=== PATIENT | female | born 1960 | race Caucasian/White ===

== ENCOUNTER 2016-06-21 14:44 | Emergency (ER) | payer MEDICARE, BC ==
[~2016-06-21] VITALS: Wt 72.0 kg
[~2016-06-21 14:44] MED LIST: ARIP15TA2 PO; BENZ1TAB7 PO; CALC-62 PO; CLON-429 PO; HYDR2TAB3 PO; LANS30CA47 PO; OXCA300T3 PO
[2016-06-21] MEDS ORDERED: CYCL-319 PO (15:59)
[2016-06-21] MEDS ORDERED: TAPE50TA PO (15:59)
[2016-06-21] MEDS ORDERED: DIAZ10TA4 PO (15:59)
--- NOTE | 2016-06-21 16:11 | ERD ---
ER Documentation Chief Complaint Date/Time DATE: 06/21/16 TIME: 16:08 Chief Complaint BACK SPASM CHRONIC PER PT , NO RECENT INJURY. NO DISTRESS. HPI This 55-year-old female complains of acute on chronic back spasm in her neck and lower back. She gives a history of seeing pain management getting regular epidurals although she has been without medication and a recent epidural. She has been referred to pain management which is too far away from her and she is having acute pain. She has been prescribed Dilaudid in the past but developed hepatitis and had to discontinue. She takes Nucynta Flexeril and Valium but none recently. She denies any new trauma, fevers, shortness breath or chest pain. Denies any recent medication. ROS All systems reviewed and are negative except as per history of present illness. Medications Home Meds Active Scripts Diazepam* (Diazepam*) 10 Mg Tablet, 10 MG PO TID, #20 TAB Prov:SUSAN COLIN MD 06/21/16 Cyclobenzaprine Hcl* (Cyclobenzaprine Hcl*) 10 Mg Tablet, 10 MG PO TID, #40 TAB Prov:SUSAN COLIN MD 06/21/16 Tapentadol Hcl (Nucynta ER) 50 Mg Tab.er.12h, 50 MG PO Q12, #14 TAB Prov:SUSAN COLIN MD 06/21/16 Reported Medications Oxcarbazepine* (Trileptal*) 300 Mg Tablet, 300 MG PO BID 09/06/11 Hydromorphone Hcl (Dilaudid) 2 Mg Tab, 4 MG PO TID, 0 Refills 11/23/09 Clonazepam* (Klonopin*) 0.5 Mg Tab, 0.5 MG PO BID, 0 Refills 11/23/09 Lansoprazole* (Prevacid*) 30 Mg Capsule.dr, 30 MG PO DAILY, 0 Refills 11/23/09 Calcium Carbonate/Vitamin D3 (Calcium 500 + D Tablet) 1 Tab Tablet, 1 TAB PO BID , 0 Refills 11/23/09 Benztropine Mesylate* (Cogentin*) 1 Mg Tab, 2 MG PO DAILY, 0 Refills 11/23/09 Aripiprazole* (Abilify*) 15 Mg Tablet, 10 MG PO DAILY, 0 Refills 11/23/09 Allergies Allergies: Coded Allergies: Metoclopramide (Verified Allergy, Severe, BPS, 10/17/11) PMhx/Soc History of Surgery: Yes (4 ABORTIONS, BREAST AUGMENTATION) Anesthesia Reaction: No Hx Neurological Disorder: No Hx Respiratory Disorders: Yes (EMPHYSEMA) Hx Cardiac Disorders: No Hx Psychiatric Problems: Yes (BIPOLAR, PSYCHOSIS) Hx Miscellaneous Medical Probl: Yes (KIDNEY STONE, HEPATITIS C) Hx Alcohol Use: Yes Hx Substance Use: Yes Hx Tobacco Use: No Physical Exam Vitals Vital Signs Date Time Temp Pulse Resp B/P Pulse Ox O2 Delivery O2 Flow Rate FiO2 06/21/16 14:48 98.5 88 20 101/68 98 Physical Exam Const: [] Alert, anxious unable to sit but no apparent distress Head: Atraumatic Eyes: Normal Conjunctiva ENT: Normal External Ears, Nose and Mouth. Neck: Full range of motion..~ No meningismus. Resp: Clear to auscultation bilaterally Cardio: Regular rate and rhythm, no murmurs Abd: Soft, non tender, non distended. Normal bowel sounds Skin: No petechiae or rashes Back: No midline or flank tenderness. Generalized paraspinous tenderness in the thoracic or lumbar spine and cervical paraspinous muscles. No changes or bony tenderness performed Ext: No cyanosis, or edema Neur: Awake and alert Psych: Normal Mood and Affect Procedures/MDM Patient is requesting short refill of medication until she can see her pain management which is new to her. Review of the tears record shows no recent prescriptions filled by patient and patient does not have recent visits here in the eD. She will be given a short course of Flexeril, Valium and Nucynta until she can follow-up with her primary care doctor or pain management as directed. Patient otherwise return to the ER for new or worsening symptoms, cough, shortness of breath, fevers, new symptoms Departure Diagnosis: Primary Impression: Back pain Back pain location: back pain in unspecified location Chronicity: acute Back pain laterality: bilateral Qualified Code: M54.9 - Acute bilateral back pain, unspecified back location Condition: Stable Patient Instructions: Back Pain (Acute Or Chronic) Referrals: SALLY MUNOZ MD, ANTHONY Jr., MD [facility] Hours: Mon-Sat 9:00 AM - 5:00 PM Additional Instructions: See primary doctor or pain management for further evaluation and treatment. SUSAN COLIN MD Jun 21, 2016 16:11
== END 2016-06-21 16:22 | disposition home or self-care (01) ==
LOC: FTE 14:44
DX: M54.6 Pain in thoracic spine (principal)
CPT/HCPCS: 99284

== ENCOUNTER 2017-01-18 22:42 | Emergency (ER) | payer MEDICARE, BC ==
[~2017-01-18] VITALS: Ht 162.6 cm; Wt 71.0 kg
[~2017-01-18 22:42] MED LIST changes: +CYCL-319 PO; +DIAZ10TA4 PO; +TAPE50TA PO
[2017-01-18 22:54] VITALS: Ht 162.6 cm; Wt 71.0 kg
[2017-01-19] MEDS ORDERED: IBUP-1542 PO (01:18)
[2017-01-19] MEDS ORDERED: CEPH-443 PO (01:18)
[2017-01-19] MEDS ORDERED: SSD1C20 TOP (01:18)
--- NOTE | 2017-01-19 01:22 | ERD ---
ER Documentation Chief Complaint Date/Time DATE: 01/19/17 TIME: 01:21 Chief Complaint both foot pain for few days HPI 56-year-old female presents stating that she burned her feet secondary to hot pavement. Is having today. She is ambulatory denies any numbness or tingling. He is unsure of her last tetanus vaccination. She has not taken any medication for pain. ROS All systems reviewed and are negative except as per history of present illness. Medications Home Meds Active Scripts Cephalexin* (Keflex*) 500 Mg Capsule, 500 MG PO QID for 7 Days, CAP Prov:SHARRON PUGH PA-C 01/19/17 Ibuprofen* (Ibuprofen*) 600 Mg Tablet, 600 MG PO Q6, #30 TAB Prov:SHARRON PUGH PA-C 01/19/17 Silver Sulfadiazine (THERMAZENE 1% 25 GM) 1 Applic Cr, 1 APPLIC TOP BID, #1 TUB Prov:SHARRON PUGH PA-C 01/19/17 Diazepam* (Diazepam*) 10 Mg Tablet, 10 MG PO TID, #20 TAB Prov:SUSAN COLIN MD 06/21/16 Cyclobenzaprine Hcl* (Cyclobenzaprine Hcl*) 10 Mg Tablet, 10 MG PO TID, #40 TAB Prov:SUSAN COLIN MD 06/21/16 Tapentadol Hcl (Nucynta ER) 50 Mg Tab.er.12h, 50 MG PO Q12, #14 TAB Prov:SUSAN COLIN MD 06/21/16 Reported Medications Oxcarbazepine* (Trileptal*) 300 Mg Tablet, 300 MG PO BID 09/06/11 Hydromorphone Hcl (Dilaudid) 2 Mg Tab, 4 MG PO TID, 0 Refills 11/23/09 Clonazepam* (Klonopin*) 0.5 Mg Tab, 0.5 MG PO BID, 0 Refills 11/23/09 Lansoprazole* (Prevacid*) 30 Mg Capsule.dr, 30 MG PO DAILY, 0 Refills 11/23/09 Calcium Carbonate/Vitamin D3 (Calcium 500 + D Tablet) 1 Tab Tablet, 1 TAB PO BID , 0 Refills 11/23/09 Benztropine Mesylate* (Cogentin*) 1 Mg Tab, 2 MG PO DAILY, 0 Refills 11/23/09 Aripiprazole* (Abilify*) 15 Mg Tablet, 10 MG PO DAILY, 0 Refills 11/23/09 Allergies Allergies: Coded Allergies: Metoclopramide (Verified Allergy, Severe, BPS, 10/17/11) PMhx/Soc History of Surgery: Yes (4 ABORTIONS, BREAST AUGMENTATION) Anesthesia Reaction: No Hx Neurological Disorder: No Hx Respiratory Disorders: Yes (EMPHYSEMA) Hx Cardiac Disorders: No Hx Psychiatric Problems: Yes (BIPOLAR, PSYCHOSIS) Hx Miscellaneous Medical Probl: Yes (KIDNEY STONE, HEPATITIS C) Hx Alcohol Use: Yes Hx Substance Use: Yes Hx Tobacco Use: No Smoking Status: Unknown if ever smoked FmHx Family History: No diabetes Physical Exam Vitals Vital Signs Date Time Temp Pulse Resp B/P Pulse Ox O2 Delivery O2 Flow Rate FiO2 01/18/17 22:54 99.4 82 20 118/62 97 Physical Exam Const: [] Head: Atraumatic Eyes: Normal Conjunctiva ENT: Normal External Ears, Nose and Mouth. Neck: Full range of motion..~ No meningismus. Resp: Clear to auscultation bilaterally Cardio: Regular rate and rhythm, no murmurs Abd: Soft, non tender, non distended. Normal bowel sounds Skin: Mild erythema erythema to the bilateral plantar surface of the feet, pedal pulse 2+, full range of motion, ambulatory, no bony abnormalities Results 24 hrs Current Medications Medications (Trade) Dose Ordered Sig/Jignesh Route PRN Reason Start Time Stop Time Status Last Admin Dose Admin Diphtheria/ Tetanus/Acell Pertussis (Adacel) 0.5 ml ONCE ONCE IM* 01/19/17 01:30 01/19/17 01:31 Procedures/MDM Patient presents with feet pain secondary to burning her feet are hot pavement. There are no blisters or evidence of second-degree lee. Patient was given prescription for Keflex and Silvadene cream as well as ibuprofen for pain and she was given a tetanus vaccination. Patient counseled regarding my diagnostic impression and care plan. Prior to discharge all questions answered. Pt agrees with treatment plan and understands strict return precautions. Pt is instructed to follow up with primary care provider within 24-48 hours. Precautionary instructions provided including instructions to return to the ER if not improving or for any worsening or changing symptoms or concerns. Departure Diagnosis: Primary Impression: Burn of foot Condition: Stable Patient Instructions: Burn, First Degree Additional Instructions: Call your primary care doctor TOMORROW for an appointment during the next 1-2 days.See the doctor sooner or return here if your condition worsens before your appointment time. SHARRON PUGH PA-C Jan 19, 2017 01:22
[2017-01-19] MEDS ORDERED: DIPHTH/TET/ACEL PERTUSS (ADULT) 0.5 ML VIAL IM* ONE (01:30)
[2017-01-19 02:14] VITALS: BP 141/77; PULSE 79; RESP 18; TEMP 98.3
== END 2017-01-19 02:15 | disposition home or self-care (01) ==
LOC: FTE 22:42
DX: T25.121A Burn of first degree of right foot, initial encounter (principal); T25.122A Burn of first degree of left foot, initial encounter; X19.XXXA Contact with other heat and hot substances, initial encounter; Y92.480 Sidewalk as the place of occurrence of the external cause; Z23 Encounter for immunization
CPT/HCPCS: 90471; 90715

== ENCOUNTER 2017-01-19 08:11 | Emergency (ER) | payer MEDICARE, BC ==
[~2017-01-19] VITALS: Ht 162.6 cm; Wt 71.0 kg
[~2017-01-19 08:11] MED LIST changes: +CEPH-443 PO; +IBUP-1542 PO; +SSD1C20 TOP
[2017-01-19 08:25] VITALS: Ht 162.6 cm; Wt 71.0 kg
[2017-01-19] MEDS ORDERED: ONDANSETRON 4 MG INJ IV STA (08:54)
[2017-01-19] MEDS ORDERED: SOD CHLORIDE 0.9% 1,000 ML IV STA (08:54)
[2017-01-19] MEDS ORDERED: LORAZEPAM 2 MG INJ IV ONE (09:30)
[2017-01-19 09:39] LABS: BASOPHILS % 0.1 % (0.0-2.0); EOSINOPHILS % 0.4 % (0.0-7.0); HEMATOCRIT 38.8 % (37.0-47.0); HEMOGLOBIN 13.5 g/dl (12.0-16.0); LYMPHOCYTES # 1.5 10^3/ul (0.8-2.9); LYMPHOCYTES % 20.1 % (15.0-51.0); MEAN CORPUSCULAR HEMOGLOBIN 30.5 pg (29.0-33.0); MEAN CORPUSCULAR HGB CONC 34.8 g/dl (32.0-37.0); MEAN CORPUSCULAR VOLUME 87.6 fl (82.0-101.0); MEAN PLATELET VOLUME 10.9 fl (7.4-10.4); MONOCYTE # 0.8 10^3/ul (0.3-0.9); MONOCYTES % 10.7 % (0.0-11.0); NEUTROPHILS % 68.6 % (39.0-77.0); PLATELET COUNT 223 10^3/UL (140-415); RED BLOOD COUNT 4.43 10^6/ul (4.20-5.40); RED CELL DISTRIBUTION WIDTH 12.2 % (11.5-14.5); WHITE BLOOD COUNT 7.4 10^3/ul (4.8-10.8)
[2017-01-19 09:58] LABS: ALANINE AMINOTRANSFERASE 76 IU/L (13-69); ALBUMIN 4.6 g/dl (3.3-4.9); ALBUMIN/GLOBULIN RATIO 1.24; ALKALINE PHOSPHATASE 61 IU/L (42-121); ANION GAP 14 (8-16); ASPARTATE AMINO TRANSFERASE 45 IU/L (15-46); BILIRUBIN,INDIRECT 0.2 mg/dl (0-1.1); BILIRUBIN,TOTAL 0.2 mg/dl (0.2-1.3); BLOOD UREA NITROGEN 21 mg/dl (7-20); CALCIUM 9.9 mg/dl (8.4-10.2); CARBON DIOXIDE 27 mmol/L (21-31); CHLORIDE 103 mmol/L (97-110); CREATININE 0.76 mg/dl (0.44-1.00); GLUCOSE 98 mg/dl (70-220); POTASSIUM 3.3 mmol/L (3.5-5.1); SODIUM 141 mmol/L (135-144); TOTAL PROTEIN 8.3 g/dl (6.1-8.1)
[2017-01-19 10:00] LABS: ETHANOL < 10.0 mg/dl
--- NOTE | 2017-01-19 10:16 | RADRPT ---
PROCEDURE: CT abdomen and pelvis without contrast. CLINICAL INDICATION: Abdominal pain. TECHNIQUE: CT scan of the abdomen and pelvis without contrast was performed on a multi-slice CT [facility] . Sagittal and coronal reformatted images were obtained from the axial source images. One or more of the following dose reduction techniques were used: - Automated exposure control. - Adjustment of the mA and/or kV according to patient size. - Use of iterative reconstruction technique. DLP 835.3 mGycm. CTDIvol 15.3 mGy COMPARISON: None FINDINGS: The lung bases are clear. bilateral breast implants are present. There is limited evaluation of the solid viscera from the lack of IV contrast. The kidneys are symmetric bilaterally with no evidence of renal or ureteral calculi. There is no hy dronephrosis or perinephric stranding. There is normal density of the liver with an area of localized low density along the falciform liga ment likely focal fat with scattered punctate calcifications. There are no other lesions with no bi liary ductal dilatation. The gallbladder has punctate layering stones without surrounding inflammat ion. The spleen is nonenlarged. There are numerous splenic calcifications. The adrenal glands are withi n normal limits without mass. The pancreas is unremarkable without focal lesion or surrounding inflammatory changes. There is no evidence of bowel obstruction. There is generalize fluid distension of the colon which is borderline colonic wall thickening and trace surrounding fat stranding. The appendix is unremarka ble. There is no free air or free fluid. There are no enlarged lymph nodes. There is aortic atherosclerosis without aneurysmal dilatation. Degenerative changes are seen in t he lumbar spine with no acute osseous abnormality. Scoliosis is present. The uterus and adnexal structures are grossly unremarkable. IMPRESSION: No evidence of renal or ureteral calculi or hydronephrosis. There are findings suggestive of likely mild colitis with the presence of a colonic ileus. This may be infectious or inflammatory in nature. Findings of prior granulomatous disease within the liver and spleen. Atherosclerotic disease is present. RPTAT: AA .Lucia Barry MD, Date Time Electronically viewed and signed by .Lucia Barry MD, on 01/19/2017 10:15 .J/
[2017-01-19 11:06] LABS: COCAINE Negative (NEGATIVE)
[2017-01-19 11:07] LABS: BARBITURATES Negative (NEGATIVE); BENZODIAZEPINES Negative (NEGATIVE); CANNABINOIDS Negative (NEGATIVE); OPIATES Negative (NEGATIVE)
--- NOTE | 2017-01-19 12:46 | ERA ---
ER Documentation Chief Complaint Date/Time DATE: 01/19/17 TIME: 12:42 Chief Complaint VOMITING AFTER TAKING "SCHROOMS." VOMITED IN THE WAITING AREA. HPI This is a 56-year-old female who presents with vomiting. The patient initially told triage that she took mushrooms however the patient is extremely disorganized. To me she states that the way she took some Ultram as well as by walking on them. The patient is speaking in flight of ideas. The patient initially reported abdominal pain but then denies abdominal pain. She did have a single episode of nonbloody nonbilious vomiting in the waiting room. Remainder of HPI is limited. The patient does report a history of bipolar disorder and schizoaffective disorder. She states that she has not taken her medications for unknown period of time. ROS All systems reviewed and are negative except as per history of present illness. Medications Home Meds Active Scripts Cephalexin* (Keflex*) 500 Mg Capsule, 500 MG PO QID for 7 Days, CAP Prov:SHARRON PUGH PA-C 01/19/17 Ibuprofen* (Ibuprofen*) 600 Mg Tablet, 600 MG PO Q6, #30 TAB Prov:SHARRON PUGH PA-C 01/19/17 Silver Sulfadiazine (THERMAZENE 1% 25 GM) 1 Applic Cr, 1 APPLIC TOP BID, #1 TUB Prov:SHARRON PUGH PA-C 01/19/17 Diazepam* (Diazepam*) 10 Mg Tablet, 10 MG PO TID, #20 TAB Prov:SUSAN COLIN MD 06/21/16 Cyclobenzaprine Hcl* (Cyclobenzaprine Hcl*) 10 Mg Tablet, 10 MG PO TID, #40 TAB Prov:SUSAN COLIN MD 06/21/16 Tapentadol Hcl (Nucynta ER) 50 Mg Tab.er.12h, 50 MG PO Q12, #14 TAB Prov:SUSAN COLIN MD 06/21/16 Reported Medications Oxcarbazepine* (Trileptal*) 300 Mg Tablet, 300 MG PO BID 09/06/11 Hydromorphone Hcl (Dilaudid) 2 Mg Tab, 4 MG PO TID, 0 Refills 11/23/09 Clonazepam* (Klonopin*) 0.5 Mg Tab, 0.5 MG PO BID, 0 Refills 7/7/10 Lansoprazole* (Prevacid*) 30 Mg Capsule.dr, 30 MG PO DAILY, 0 Refills 11/23/09 Calcium Carbonate/Vitamin D3 (Calcium 500 + D Tablet) 1 Tab Tablet, 1 TAB PO BID , 0 Refills 11/23/09 Benztropine Mesylate* (Cogentin*) 1 Mg Tab, 2 MG PO DAILY, 0 Refills 11/23/09 Aripiprazole* (Abilify*) 15 Mg Tablet, 10 MG PO DAILY, 0 Refills 11/23/09 Allergies Allergies: Coded Allergies: Metoclopramide (Verified Allergy, Severe, BPS, 10/17/11) PMhx/Soc History of Surgery: Yes (4 ABORTIONS, BREAST AUGMENTATION) Anesthesia Reaction: No Hx Neurological Disorder: No Hx Respiratory Disorders: Yes (EMPHYSEMA) Hx Cardiac Disorders: No Hx Psychiatric Problems: Yes (BIPOLAR, PSYCHOSIS) Hx Miscellaneous Medical Probl: Yes (KIDNEY STONE, HEPATITIS C) Hx Alcohol Use: Yes Hx Substance Use: Yes Hx Tobacco Use: No Smoking Status: Former smoker FmHx Family History: No diabetes Physical Exam Vitals Vital Signs Date Time Temp Pulse Resp B/P Pulse Ox O2 Delivery O2 Flow Rate FiO2 01/19/17 10:48 97.9 74 17 109/66 98 Room Air 01/19/17 08:25 98.3 70 16 119/73 98 Physical Exam General: Disheveled, occasionally responding to internal stimuli head: Normocephalic, atraumatic Eyes: Pupils equally reactive, EOM intact ENT: Moist mucous membranes Neck: Supple, no lymphadenopathy Respiratory: Lungs clear bilaterally, no distress Cardiovascular: RRR, no murmurs, rubs, or gallops Abdominal: Soft, non-tender, non-distended, no peritoneal signs : Deferred MSK: No edema, no unilateral swelling, 5/5 strength Neurologic: Alert and oriented, moving all extremities, normal speech, no focal weakness, no cerebellar signs Skin: No rash Psych: Poor insight, speaking and flight of ideas, no SI Result Diagram: 01/19/1725 01/19/1725 Results 24 hrs Laboratory Tests Test 01/19/17 09:25 01/19/17 10:20 White Blood Count 7.410^3/ul Red Blood Count 4.4310^6/ul Hemoglobin 13.5g/dl Hematocrit 38.8% Mean Corpuscular Volume 87.6fl Mean Corpuscular Hemoglobin 30.5pg Mean Corpuscular Hemoglobin Concent 34.8g/dl Red Cell Distribution Width 12.2% Platelet Count 05858^3/UL Mean Platelet Volume 10.9fl Neutrophils % 68.6% Lymphocytes % 20.1% Monocytes % 10.7% Eosinophils % 0.4% Basophils % 0.1% Nucleated Red Blood Cells % 0.0/100WBC Neutrophils # (Manual) 5.010^3/ul Lymphocytes # 1.510^3/ul Monocytes # 0.810^3/ul Eosinophils # 0.010^3/ul Basophils # 0.010^3/ul Nucleated Red Blood Cells # 0.010^3/ul Sodium Level 141mmol/L Potassium Level 3.3mmol/L Chloride Level 103mmol/L Carbon Dioxide Level 27mmol/L Anion Gap 14 Blood Urea Nitrogen 21mg/dl Creatinine 0.76mg/dl Glucose Level 98mg/dl Calcium Level 9.9mg/dl Total Bilirubin 0.2mg/dl Direct Bilirubin 0.00mg/dl Indirect Bilirubin 0.2mg/dl Aspartate Amino Transf (AST/SGOT) 45IU/L Alanine Aminotransferase (ALT/SGPT) 76IU/L Alkaline Phosphatase 61IU/L Total Protein 8.3g/dl Albumin 4.6g/dl Globulin 3.70g/dl Albumin/Globulin Ratio 1.24 Lipase 33U/L Serum HCG, Qualitative NEGATIVE Ethyl Alcohol Level < 10.0mg/dl Urine Opiates Screen Negative Urine Barbiturates Negative Urine Amphetamines Screen Negative Urine Benzodiazepines Screen Negative Urine Cocaine Screen Negative Urine Cannabinoids Negative Current Medications Medications (Trade) Dose Ordered Sig/Jignesh Route PRN Reason Start Time Stop Time Status Last Admin Dose Admin Sodium Chloride (NS) 1,000 ml @ 1,000 mls/hr Q1H STAT IV 01/19/17 08:54 01/19/17 09:53 DC 01/19/17 09:18 Ondansetron HCl (Zofran Inj) 4 mg ONCE STAT IV 01/19/17 08:54 01/19/17 08:57 DC 01/19/17 09:18 Lorazepam (Ativan) 1 mg ONCE ONCE IV 01/19/17 09:30 01/19/17 09:31 DC 01/19/17 09:39 Procedures/MDM EKG/DIAGNOSTIC IMAGING: CT abdomen and pelvis: No evidence of acute intra-abdominal process LAB INTERPRETATION: No leukocytosis no evidence of acute process MEDICAL DECISION MAKING: The patient's presentation is consistent with underlying psychiatric illness and likely exacerbation of this illness and/or psychosis. I have a much lower clinical concern for delirium or acute organic pathology such as toxicologic, metabolic, ischemic, intracranial hemorrhage, infectious process. However, we must rule this out prior to relying a diagnosis of underlying psychiatric illness. The patient's workup will include medical screening examination, laboratory analysis, and diagnostic imaging such as EKG, chest x-ray or CT brain as indicated. If the patient's medical examination and laboratory analysis do not reveal acute organic pathology the patient will be medically cleared for psychiatric evaluation. ER COURSE: Patient given IV fluids, Zofran, Ativan patient refused Zyprexa The patient's laboratory analysis, diagnostic imaging do not suggest an acute organic pathology. At this time I believe the patient's presentation is very consistent with underlying psychiatric illness. The patient is medically cleared for psychiatric evaluation. I kept the patient and/or family informed of laboratory and diagnostic imaging results throughout the emergency room course. CONSULTATION: Psychiatric consultation: Telemetry medicine psychiatry has been consulted on this case to evaluate the patient for possible acute psychiatric illness that would require inpatient hospitalization. DISPOSITION PLAN: Pending psychiatric evaluation Departure Diagnosis: Primary Impression: Abdominal pain Qualified Code: R10.84 - Generalized abdominal pain Additional Impressions: Nausea and vomiting Qualified Code: R11.2 - Non-intractable vomiting with nausea, unspecified vomiting type Acute psychosis Condition: Stable JORDAN HEREDIA MD Jan 19, 2017 12:46
--- NOTE | 2017-01-19 13:30 | PSY ---
Date/Time of Note Date/Time of Note DATE: 01/19/17 TIME: 13:26 Psychiatric Subjective Eval Consent Pt consented to telemedicine: Yes Subjective Evaluation Patient location: emergency Chief Complaint: VOMITING AFTER TAKING "SCHROOMS." VOMITED IN THE WAITING AREA. History of present illness 56 yo homeless femkenzie crow presents to ED c/o vomiting; pt is disorganzied, tangential, castillo snot make much sens, poor historian, not bale to say where she lives and how she provideds for herself. UDS neg. Denies IS or hi, resp to internal stimuli. Pt says she is on [place]." I wantd to jump out of the window and I did but I guess I didn't" Past psychiatric history prior inpt Hospitalization: yes Family History unknown Medical history Problems Medical Problems: (1) Abdominal pain Status: Acute (2) Acute psychosis Status: Acute (3) Back pain Status: Acute (4) Burn of foot Status: Acute (5) Nausea and vomiting Status: Acute Allergies: Coded Allergies: Metoclopramide (Verified Allergy, Severe, BPS, 10/17/11) Substance Abuse Substance abuse history: Yes Social History Marital status: Level of education: High School. DPA/Conservatorship: No Psychiatric Objective Eval Mental Status Examination: Appearance: Disheveled Eye Contact: Poor Psychomotor Activity: Slow Behavior: Cooperative Speech: Disorganized, Slurred AFFECT: Flat Mood: Appropriate/Full Though Process: Tangential Thought Content: Delusions Suicidal: Yes Homicidal: No Cognition: Drowsy Insight: Impared Judgement: Impared Laboratory Results Laboratory Tests Test 01/19/17 09:25 01/19/17 10:20 White Blood Count 7.410^3/ul Red Blood Count 4.4310^6/ul Hemoglobin 13.5g/dl Hematocrit 38.8% Mean Corpuscular Volume 87.6fl Mean Corpuscular Hemoglobin 30.5pg Mean Corpuscular Hemoglobin Concent 34.8g/dl Red Cell Distribution Width 12.2% Platelet Count 66132^3/UL Mean Platelet Volume 10.9fl Neutrophils % 68.6% Lymphocytes % 20.1% Monocytes % 10.7% Eosinophils % 0.4% Basophils % 0.1% Nucleated Red Blood Cells % 0.0/100WBC Neutrophils # (Manual) 5.010^3/ul Lymphocytes # 1.510^3/ul Monocytes # 0.810^3/ul Eosinophils # 0.010^3/ul Basophils # 0.010^3/ul Nucleated Red Blood Cells # 0.010^3/ul Sodium Level 141mmol/L Potassium Level 3.3mmol/L Chloride Level 103mmol/L Carbon Dioxide Level 27mmol/L Anion Gap 14 Blood Urea Nitrogen 21mg/dl Creatinine 0.76mg/dl Glucose Level 98mg/dl Calcium Level 9.9mg/dl Total Bilirubin 0.2mg/dl Direct Bilirubin 0.00mg/dl Indirect Bilirubin 0.2mg/dl Aspartate Amino Transf (AST/SGOT) 45IU/L Alanine Aminotransferase (ALT/SGPT) 76IU/L Alkaline Phosphatase 61IU/L Total Protein 8.3g/dl Albumin 4.6g/dl Globulin 3.70g/dl Albumin/Globulin Ratio 1.24 Lipase 33U/L Serum HCG, Qualitative NEGATIVE Ethyl Alcohol Level < 10.0mg/dl Urine Opiates Screen Negative Urine Barbiturates Negative Urine Amphetamines Screen Negative Urine Benzodiazepines Screen Negative Urine Cocaine Screen Negative Urine Cannabinoids Negative Assessment and Plan Assessment/Diagnosis [place] I: Unspecified psychosis [place] II: defered [place] III: nad [place] IV: severe [place] V: 25 Recommendation/Plan Medication Management zyprexa 10 mg poqhs Follow-up/Disposition 550 for gd; transfer to in psych. 5150 Recommendation: LUIZA Dyson MD Jan 19, 2017 13:30
[2017-01-19] MEDS ORDERED: KETOROLAC 30 MG INJ IV STA (15:11)
[2017-01-19 20:51] VITALS: BP 113/71; PULSE 72; RESP 16; TEMP 98.3
[2017-01-19] MEDS ORDERED: OLANZAPINE 5 MG TAB PO SCH (21:00)
== END 2017-01-19 21:35 | disposition short-term general hospital (02) ==
LOC: E/R 08:11
DX: R10.84 Generalized abdominal pain (principal); R11.2 Nausea with vomiting, unspecified; F29 Unspecified psychosis not due to a substance or known physiological condition; Z87.891 Personal history of nicotine dependence
CPT/HCPCS: 36415; 74176; 80053; 80306; 80307; 83690; 84703; 85025; 96374; 96375; 99285; J1885; J2060; J2405; J7030

== ENCOUNTER 2017-03-13 10:25 | Emergency (ER) | payer MEDICARE, BC ==
[~2017-03-13] VITALS: Ht 162.6 cm; Wt 70.0 kg
[~2017-03-13 10:25] MED LIST changes: -TAPE50TA PO; +TAPE50TA8 PO
[2017-03-13 10:35] VITALS: Ht 162.6 cm; Wt 70.0 kg
[2017-03-13] MEDS ORDERED: LORAZEPAM 2 MG INJ IM ONE (11:30)
[2017-03-13 11:38] LABS: BASOPHILS % 0.4 % (0.0-2.0); EOSINOPHILS # 0.1 10^3/ul (0.0-0.5); EOSINOPHILS % 1.5 % (0.0-7.0); HEMATOCRIT 40.2 % (37.0-47.0); HEMOGLOBIN 13.4 g/dl (12.0-16.0); LYMPHOCYTES # 3.1 10^3/ul (0.8-2.9); LYMPHOCYTES % 43.3 % (15.0-51.0); MEAN CORPUSCULAR HEMOGLOBIN 30.5 pg (29.0-33.0); MEAN CORPUSCULAR HGB CONC 33.3 g/dl (32.0-37.0); MEAN CORPUSCULAR VOLUME 91.4 fl (82.0-101.0); MEAN PLATELET VOLUME 10.4 fl (7.4-10.4); NEUTROPHIL # 2.9 10^3/ul (1.6-7.5); NEUTROPHILS % 40.7 % (39.0-77.0); PLATELET COUNT 228 10^3/UL (140-415); RED CELL DISTRIBUTION WIDTH 13.2 % (11.5-14.5); WHITE BLOOD COUNT 7.1 10^3/ul (4.8-10.8)
[2017-03-13 12:05] LABS: ALANINE AMINOTRANSFERASE 71 IU/L (13-69); ALBUMIN 4.7 g/dl (3.3-4.9); ALBUMIN/GLOBULIN RATIO 1.38; ALKALINE PHOSPHATASE 63 IU/L (42-121); ANION GAP 15 (8-16); ASPARTATE AMINO TRANSFERASE 47 IU/L (15-46); BILIRUBIN,INDIRECT 0.6 mg/dl (0-1.1); BILIRUBIN,TOTAL 0.6 mg/dl (0.2-1.3); BLOOD UREA NITROGEN 27 mg/dl (7-20); CALCIUM 9.6 mg/dl (8.4-10.2); CARBON DIOXIDE 25 mmol/L (21-31); CHLORIDE 109 mmol/L (97-110); CREATININE 0.69 mg/dl (0.44-1.00); GLUCOSE 98 mg/dl (70-220); POTASSIUM 4.3 mmol/L (3.5-5.1); SODIUM 145 mmol/L (135-144); TOTAL PROTEIN 8.1 g/dl (6.1-8.1)
[2017-03-13 12:14] LABS: ACETAMINOPHEN < 10.0 ug/ml (10.0-30.0); ETHANOL < 10.0 mg/dl; SALICYLATE < 1.0 mg/dl (5.0-30.0)
--- NOTE | 2017-03-13 13:13 | ERD ---
ER Documentation Chief Complaint Chief Complaint BIB RA FOR EVAL OF VOMTING TODAY. HPI This 56-year-old female presents to the emergency room for evaluation of agitation and suicidal ideation. She says she wants to herself and states that she is bipolar and wants to jump in front of traffic. The patient states that she also did cocaine and heroin last night, and came to the ER today by ambulance for evaluation. ROS All systems reviewed and are negative except as per history of present illness. Medications Home Meds Active Scripts Cephalexin* (Keflex*) 500 Mg Capsule, 500 MG PO QID for 7 Days, CAP Prov:SHARRON PUGH PA-C 01/19/17 Ibuprofen* (Ibuprofen*) 600 Mg Tablet, 600 MG PO Q6, #30 TAB Prov:SHARRON PUGH PA-C 01/19/17 Silver Sulfadiazine (THERMAZENE 1% 25 GM) 1 Applic Cr, 1 APPLIC TOP BID, #1 TUB Prov:SHARRON PUGH PA-C 01/19/17 Diazepam* (Diazepam*) 10 Mg Tablet, 10 MG PO TID, #20 TAB Prov:SUSAN COLIN MD 06/21/16 Cyclobenzaprine Hcl* (Cyclobenzaprine Hcl*) 10 Mg Tablet, 10 MG PO TID, #40 TAB Prov:SUSAN COLIN MD 06/21/16 Tapentadol Hcl (Nucynta ER) 50 Mg Tab.er.12h, 50 MG PO Q12, #14 TAB Prov:SUSAN COLIN MD 06/21/16 Reported Medications Oxcarbazepine* (Trileptal*) 300 Mg Tablet, 300 MG PO BID 09/06/11 Hydromorphone Hcl (Dilaudid) 2 Mg Tab, 4 MG PO TID, 0 Refills 11/23/09 Clonazepam* (Klonopin*) 0.5 Mg Tab, 0.5 MG PO BID, 0 Refills 11/23/09 Lansoprazole* (Prevacid*) 30 Mg Capsule.dr, 30 MG PO DAILY, 0 Refills 11/23/09 Calcium Carbonate/Vitamin D3 (Calcium 500 + D Tablet) 1 Tab Tablet, 1 TAB PO BID , 0 Refills 11/23/09 Benztropine Mesylate* (Cogentin*) 1 Mg Tab, 2 MG PO DAILY, 0 Refills 11/23/09 Aripiprazole* (Abilify*) 15 Mg Tablet, 10 MG PO DAILY, 0 Refills 11/23/09 Allergies Allergies: Coded Allergies: metoclopramide (Verified Allergy, Severe, BPS, 10/17/11) olanzapine (Verified Allergy, Unknown, Dystonic reaction, 01/19/17) PMhx/Soc History of Surgery: Yes (4 ABORTIONS, BREAST AUGMENTATION) Anesthesia Reaction: No Hx Neurological Disorder: No Hx Respiratory Disorders: Yes (EMPHYSEMA) Hx Cardiac Disorders: No Hx Psychiatric Problems: Yes (BIPOLAR, PSYCHOSIS) Hx Miscellaneous Medical Probl: Yes (KIDNEY STONE, HEPATITIS C) Hx Alcohol Use: Yes Hx Substance Use: Yes (METH , OPIOIDS ) Hx Tobacco Use: No Smoking Status: Never smoker Physical Exam Vitals Vital Signs Date Time Temp Pulse Resp B/P Pulse Ox O2 Delivery O2 Flow Rate FiO2 03/13/17 10:35 98.3 70 18 121/79 99 Physical Exam Const: Disheveled appearance, mildly agitated Head: Atraumatic Eyes: Normal Conjunctiva ENT: Normal External Ears, Nose and Mouth. Neck: Full range of motion..~ No meningismus. Resp: Clear to auscultation bilaterally Cardio: Regular rate and rhythm, no murmurs Abd: Soft, non tender, non distended. Normal bowel sounds Skin: No petechiae or rashes Back: No midline or flank tenderness Ext: No cyanosis, or edema Neur: Awake and alert Psych: Agitated affect Result Diagram: 03/13/17 1114 03/13/17 1114 Results 24 hrs Laboratory Tests Test 03/13/17 11:14 White Blood Count 7.110^3/ul Red Blood Count 4.4010^6/ul Hemoglobin 13.4g/dl Hematocrit 40.2% Mean Corpuscular Volume 91.4fl Mean Corpuscular Hemoglobin 30.5pg Mean Corpuscular Hemoglobin Concent 33.3g/dl Red Cell Distribution Width 13.2% Platelet Count 94038^3/UL Mean Platelet Volume 10.4fl Neutrophils % 40.7% Lymphocytes % 43.3% Monocytes % 14.0% Eosinophils % 1.5% Basophils % 0.4% Nucleated Red Blood Cells % 0.0/100WBC Neutrophils # 2.910^3/ul Lymphocytes # 3.110^3/ul Monocytes # 1.010^3/ul Eosinophils # 0.110^3/ul Basophils # 0.010^3/ul Nucleated Red Blood Cells # 0.010^3/ul Sodium Level 145mmol/L Potassium Level 4.3mmol/L Chloride Level 109mmol/L Carbon Dioxide Level 25mmol/L Anion Gap 15 Blood Urea Nitrogen 27mg/dl Creatinine 0.69mg/dl Glucose Level 98mg/dl Calcium Level 9.6mg/dl Total Bilirubin 0.6mg/dl Direct Bilirubin 0.00mg/dl Indirect Bilirubin 0.6mg/dl Aspartate Amino Transf (AST/SGOT) 47IU/L Alanine Aminotransferase (ALT/SGPT) 71IU/L Alkaline Phosphatase 63IU/L Total Protein 8.1g/dl Albumin 4.7g/dl Globulin 3.40g/dl Albumin/Globulin Ratio 1.38 Salicylates Level < 1.0mg/dl Acetaminophen Level < 10.0ug/ml Ethyl Alcohol Level < 10.0mg/dl Current Medications Medications (Trade) Dose Ordered Sig/Jignesh Route PRN Reason Start Time Stop Time Status Last Admin Dose Admin Lorazepam (Ativan) 2 mg ONCE ONCE IM 03/13/17 11:30 03/13/17 11:31 DC 03/13/17 11:09 Procedures/MDM This 56-year-old female presents to the ER for evaluation of agitation and suicidal ideation. She has been medically cleared and will be evaluated by tele -psych physician to determine whether or not this [place] 25299 hold and will need inpatient psychiatry evaluation. This patient is denying any homicidal ideation at this time and given her agitation she did require 2 mg of intramuscular Ativan Departure Diagnosis: Primary Impression: Suicidal ideation Additional Impression: Polysubstance abuse Condition: Stable LEIDIANE LOW Mar 13, 2017 13:13
[2017-03-13 15:34] LABS: ADD UMIC YES; UR ASCORBIC ACID 40 mg/dL (NEGATIVE); UR BILIRUBIN (Dip) NEGATIVE (NEGATIVE); UR BLOOD (Dip) NEGATIVE (NEGATIVE); UR CLARITY SLIGHTLY CLOUDY (CLEAR); UR COLOR YELLOW (YELLOW); UR GLUCOSE (Dip) NEGATIVE (NEGATIVE); UR KETONES (Dip) 1+ mg/dL (NEGATIVE); UR LEUKOCYTE ESTERASE (Dip) 2+ Leu/ul (NEGATIVE); UR MUCUS FEW /HPF (NONE SEEN); UR NITRITE (Dip) NEGATIVE (NEGATIVE); UR RBC 1 /HPF (0-5); UR SPECIFIC GRAVITY (Dip) 1.024 (1.003-1.030); UR TOTAL PROTEIN (Dip) NEGATIVE (NEGATIVE); UR UROBILINOGEN (Dip) NEGATIVE (NEGATIVE)
[2017-03-13 16:00] LABS: BARBITURATES Negative (NEGATIVE); BENZODIAZEPINES Negative (NEGATIVE); CANNABINOIDS Negative (NEGATIVE); COCAINE Positive (NEGATIVE); OPIATES Negative (NEGATIVE)
[2017-03-13] MEDS ORDERED: LTH150C PO (16:05)
[2017-03-13] MEDS ORDERED: DIAZ10TA4 PO (16:06)
[2017-03-13] MEDS ORDERED: HYDR-845 PO (16:06)
[2017-03-13] MEDS ORDERED: OMEP20CA16 PO (16:08)
[2017-03-13] MEDS ORDERED: LIDO700A45 TP (16:10)
[2017-03-13] MEDS ORDERED: TIOT18CA INHALATION (16:10)
[2017-03-13] MEDS ORDERED: BIOT10TA2 PO (16:13)
[2017-03-13] MEDS ORDERED: MULT-96 PO (16:14)
[2017-03-13] MEDS ORDERED: DOCU-144 PO (16:15)
--- NOTE | 2017-03-13 18:28 | PSY ---
Date/Time of Note Date/Time of Note DATE: 03/13/17 TIME: 18:22 Psychiatric Subjective Eval Consent Pt consented to telemedicine: Yes Subjective Evaluation Patient location: emergency Chief Complaint: BIB RA FOR EVAL OF VOMTING TODAY. Reason for consult: Evaluation History of present illness Pt is a 56 year old female with bipolar disorder who was brought in by PD via ambulance. Patient was running naked in the streets. When arrived, patient took off her pants and began playing with herself. She was gievn IM ativan and has calmed somewhat. However, she remains pressured, loud and displays flight of ideas. Pt reports that she has been up pacing for three days. She is worried about being overheated. She has also used meth but her use pattern is not clear. She admitted to upon arrival to the ER. She reports she has suicidal thoughts but is "not suicidal right now." Past psychiatric history Bipolar disorder versus schizoaffective, bipolar type. Multiple inpatient admissions. Past suicide attempts. Severe dystonia to antipsychotics. Managed with lithium. Family History Bipolar disorder is common in her family. Medical history Problems Medical Problems: (1) Abdominal pain Status: Acute (2) Acute psychosis Status: Acute (3) Back pain Status: Acute (4) Burn of foot Status: Acute (5) Nausea and vomiting Status: Acute (6) Polysubstance abuse Status: Acute (7) Suicidal ideation Status: Acute Allergies: Coded Allergies: metoclopramide (Verified Allergy, Severe, BPS, 03/13/17) olanzapine (Verified Allergy, Unknown, Dystonic reaction, 03/13/17) Substance Abuse Substance abuse history: Yes (Meth) Social History Marital status: single Level of education: NA DPA/Conservatorship: No Occupation/Half-Way: Unknown Psychiatric Objective Eval Physical Examination: Physical Examination: Applicable Sleep: Initial Appetite: Increased Energy: Increased Interest: Increased Mental Status Examination: Appearance: Poor Hygiene Eye Contact: Good Psychomotor Activity: Agitated Behavior: Friendly Speech: Pressured AFFECT: Blunt Mood: Elevated Though Process: FOI Thought Content: Normal Suicidal: Yes Homicidal: No On 72 hour hold: No Orientation: x3 Cognition: Alert Insight: Impared Judgement: Impared Laboratory Results Laboratory Tests Test 03/13/17 11:14 03/13/17 14:50 White Blood Count 7.110^3/ul Red Blood Count 4.4010^6/ul Hemoglobin 13.4g/dl Hematocrit 40.2% Mean Corpuscular Volume 91.4fl Mean Corpuscular Hemoglobin 30.5pg Mean Corpuscular Hemoglobin Concent 33.3g/dl Red Cell Distribution Width 13.2% Platelet Count 31539^3/UL Mean Platelet Volume 10.4fl Neutrophils % 40.7% Lymphocytes % 43.3% Monocytes % 14.0% Eosinophils % 1.5% Basophils % 0.4% Nucleated Red Blood Cells % 0.0/100WBC Neutrophils # 2.910^3/ul Lymphocytes # 3.110^3/ul Monocytes # 1.010^3/ul Eosinophils # 0.110^3/ul Basophils # 0.010^3/ul Nucleated Red Blood Cells # 0.010^3/ul Sodium Level 145mmol/L Potassium Level 4.3mmol/L Chloride Level 109mmol/L Carbon Dioxide Level 25mmol/L Anion Gap 15 Blood Urea Nitrogen 27mg/dl Creatinine 0.69mg/dl Glucose Level 98mg/dl Calcium Level 9.6mg/dl Total Bilirubin 0.6mg/dl Direct Bilirubin 0.00mg/dl Indirect Bilirubin 0.6mg/dl Aspartate Amino Transf (AST/SGOT) 47IU/L Alanine Aminotransferase (ALT/SGPT) 71IU/L Alkaline Phosphatase 63IU/L Total Protein 8.1g/dl Albumin 4.7g/dl Globulin 3.40g/dl Albumin/Globulin Ratio 1.38 Salicylates Level < 1.0mg/dl Acetaminophen Level < 10.0ug/ml Ethyl Alcohol Level < 10.0mg/dl Urine Color YELLOW Urine Clarity SLIGHTLY CLOUDY Urine pH 5.0 Urine Specific [place] 1.024 Urine Ketones 1+mg/dL Urine Nitrite NEGATIVEmg/dL Urine Bilirubin NEGATIVEmg/dL Urine Urobilinogen NEGATIVEmg/dL Urine Leukocyte Esterase 2+Mouna/ul Urine Microscopic RBC 1/HPF Urine Microscopic WBC 38/HPF Urine Mucus FEW/HPF Urine Hemoglobin NEGATIVEmg/dL Urine Glucose NEGATIVEmg/dL Urine Total Protein NEGATIVEmg/dl Urine Opiates Screen Negative Urine Barbiturates Negative Urine Amphetamines Screen Negative Urine Benzodiazepines Screen Negative Urine Cocaine Screen Positive Urine Cannabinoids Negative Assessment and Plan Assessment/Diagnosis [place] I: Bipolar Disorder, MRE Manic Recommendation/Plan Medication Management Per inpatient psychiatry Psychotherapy NA Pt. Caregiver/Family Education NA Follow-up/Disposition Recommend 5150 and transfer to inpatient psychiatry. While patient denies being suicidal "right now" she is clearly manic and not thinking clearly. She has admitted to suicidal thoughts upon presentation to the ER and does not appear to be stable enough for discharge. Recommend 5150 is placed for DTS and GD. If there is doubt that she is gravely disabled (because she can tell you her plan) please consider the reasonableness of that plan in light of being found running naked in the streets. 5150 Recommendation: Place CHIN Clements Mar 13, 2017 18:28
[2017-03-14 04:09] VITALS: TEMP 98.3
--- NOTE | 2017-03-14 09:27 | PSY ---
Date/Time of Note Date/Time of Note DATE: 03/14/17 TIME: 09:22 Psychiatric Subjective Eval Consent Pt consented to telemedicine: Yes Subjective Evaluation Patient location: emergency Chief Complaint: BIB RA FOR EVAL OF VOMTING TODAY. Reason for consult: Evaluation History of present illness 56 yo female with hx schizoaffective d/o BIB EMS due to running naked; inappropriate bhx in ED. Pt was seen by Dr Mendoza last PM. THis AM pt is cooperative, she says she stopped her lithium a few days ago and was 'self- medicatiing with cocaine". She denies any SI or Hi, she denie sAH or VH. " Then I stop my lithium I get a little bit delusional". Pt says she is better now, she has lithium at home, she wants to be released because she has an appointmetn with her behavioral health case manager today for a [address] housing. Past psychiatric history prior inpt Hospitalization: yes Family History denies Medical history Problems Medical Problems: (1) Abdominal pain Status: Acute (2) Acute psychosis Status: Acute (3) Back pain Status: Acute (4) Burn of foot Status: Acute (5) Nausea and vomiting Status: Acute (6) Polysubstance abuse Status: Acute (7) Suicidal ideation Status: Acute Allergies: Coded Allergies: metoclopramide (Verified Allergy, Severe, BPS, 03/13/17) olanzapine (Verified Allergy, Unknown, Dystonic reaction, 03/13/17) Substance Abuse Substance abuse history: Yes Prior substance abuse treatmen: Yes Social History Marital status: single Level of education: NA DPA/Conservatorship: No Occupation/Fdc: Unknown Psychiatric Objective Eval Review of Systems: Review of Systems: Not Applicable Physical Examination: Physical Examination: Not Applicable Mental Status Examination: Appearance: Disheveled Eye Contact: Good Psychomotor Activity: Normal Behavior: Cooperative Speech: Pressured AFFECT: Appropriate Mood: Appropriate/Full Though Process: Linear Thought Content: Normal Suicidal: No Homicidal: No On 72 hour hold: No Orientation: x4 Cognition: Alert Insight: Impared Judgement: Impared Laboratory Results Laboratory Tests Test 03/13/17 11:14 03/13/17 14:50 White Blood Count 7.110^3/ul Red Blood Count 4.4010^6/ul Hemoglobin 13.4g/dl Hematocrit 40.2% Mean Corpuscular Volume 91.4fl Mean Corpuscular Hemoglobin 30.5pg Mean Corpuscular Hemoglobin Concent 33.3g/dl Red Cell Distribution Width 13.2% Platelet Count 45161^3/UL Mean Platelet Volume 10.4fl Neutrophils % 40.7% Lymphocytes % 43.3% Monocytes % 14.0% Eosinophils % 1.5% Basophils % 0.4% Nucleated Red Blood Cells % 0.0/100WBC Neutrophils # 2.910^3/ul Lymphocytes # 3.110^3/ul Monocytes # 1.010^3/ul Eosinophils # 0.110^3/ul Basophils # 0.010^3/ul Nucleated Red Blood Cells # 0.010^3/ul Sodium Level 145mmol/L Potassium Level 4.3mmol/L Chloride Level 109mmol/L Carbon Dioxide Level 25mmol/L Anion Gap 15 Blood Urea Nitrogen 27mg/dl Creatinine 0.69mg/dl Glucose Level 98mg/dl Calcium Level 9.6mg/dl Total Bilirubin 0.6mg/dl Direct Bilirubin 0.00mg/dl Indirect Bilirubin 0.6mg/dl Aspartate Amino Transf (AST/SGOT) 47IU/L Alanine Aminotransferase (ALT/SGPT) 71IU/L Alkaline Phosphatase 63IU/L Total Protein 8.1g/dl Albumin 4.7g/dl Globulin 3.40g/dl Albumin/Globulin Ratio 1.38 Salicylates Level < 1.0mg/dl Acetaminophen Level < 10.0ug/ml Ethyl Alcohol Level < 10.0mg/dl Urine Color YELLOW Urine Clarity SLIGHTLY CLOUDY Urine pH 5.0 Urine Specific [place] 1.024 Urine Ketones 1+mg/dL Urine Nitrite NEGATIVEmg/dL Urine Bilirubin NEGATIVEmg/dL Urine Urobilinogen NEGATIVEmg/dL Urine Leukocyte Esterase 2+Mouna/ul Urine Microscopic RBC 1/HPF Urine Microscopic WBC 38/HPF Urine Mucus FEW/HPF Urine Hemoglobin NEGATIVEmg/dL Urine Glucose NEGATIVEmg/dL Urine Total Protein NEGATIVEmg/dl Urine Opiates Screen Negative Urine Barbiturates Negative Urine Amphetamines Screen Negative Urine Benzodiazepines Screen Negative Urine Cocaine Screen Positive Urine Cannabinoids Negative Assessment and Plan Assessment/Diagnosis [place] I: Cocaine use disorder. Cocaine intoxication, resolved. Schizoaffective disorder. [place] II: defered [place] III: as per record [place] IV: moderate [place] V: gaf 40 Recommendation/Plan Medication Management Pt will resume [place]. Psychotherapy defer to outpt Follow-up/Disposition no dts, dto, gd; please d/c 5150. 5150 Recommendation: Release Hold LUIZA DE MD Mar 14, 2017 09:26
[2017-03-14 10:00] VITALS: BP 118/69; PULSE 76; RESP 18
== END 2017-03-14 10:11 | disposition home or self-care (01) ==
LOC: E/R 10:25
DX: R45.851 Suicidal ideations (principal); F14.10 Cocaine abuse, uncomplicated; F11.10 Opioid abuse, uncomplicated
CPT/HCPCS: 36415; 80053; 80306; 80307; 81001; 85025; 96372; 99284; J2060

== ENCOUNTER 2017-07-29 11:58 | Emergency (ER) | END 2017-07-29 16:35 | disposition home or self-care (01) ==

== ENCOUNTER 2017-11-13 16:52 | Emergency (ER) | END 2017-11-13 19:03 | disposition home or self-care (01) ==

== ENCOUNTER 2018-03-03 11:18 | Emergency (ER) | END 2018-03-03 12:52 | disposition home or self-care (01) ==

== ENCOUNTER 2018-07-15 00:33 | Emergency (ER) | payer MEDICARE, OTHER ==
[~2018-07-15] VITALS: Ht 170.2 cm; Wt 62.0 kg
[~2018-07-15 00:33] MED LIST changes: -ARIP15TA2 PO; -BENZ1TAB7 PO; -CEPH-443 PO; -CLON-429 PO; -CYCL-319 PO; +CYCL10TA7 PO; +HYDR-845 PO; -HYDR2TAB3 PO; -IBUP-1542 PO; -LANS30CA47 PO; +LTH150C PO; +MULT-96 PO; +OMEP20CA16 PO; -OXCA300T3 PO; -SSD1C20 TOP; +SULF1TAB31 PO; -TAPE50TA8 PO
[2018-07-15 00:40] VITALS: Ht 170.2 cm; Wt 62.0 kg
--- NOTE | 2018-07-15 04:42 | ERD ---
ER Documentation Chief Complaint Chief Complaint Generalized body pains, CWP X 1 Hr HPI This is a 50-year-old female complains of thoracic back pain over the past 5 days after falling flat on her back patient denies any head trauma loss of consciousness fevers chills nausea vomiting or focal neurologic complaints. Pain is mild to moderate intensity is paraspinal on the right and left. Denies any other current issues. ROS All systems reviewed and are negative except as per history of present illness. Medications Home Meds Active Scripts Sulfamethoxazole/Trimethoprim* (Bactrim Ds* Tablet) 1 Each Tablet, 1 TAB PO DAILY, #20 TAB Prov:LESA CHOWDHURY MD 03/03/18 Cyclobenzaprine Hcl* (Cyclobenzaprine Hcl*) 10 Mg Tablet, 10 MG PO TID, #40 TAB Prov:SUSAN COLIN MD 06/21/16 Reported Medications Multivitamin,Stress Formula (Stress-C) 1 Each Tablet, 1 EACH PO DAILY, TAB 03/13/17 Omeprazole* (Omeprazole*) 20 Mg Capsule.dr, 20 MG PO BID, #60 CAP 03/13/17 Hydroxyzine Hcl* (Atarax*) 50 Mg Tab, 50 MG PO QHS PRN for ITCHING, TAB 03/13/17 Diazepam* (Diazepam*) 10 Mg Tablet, 10 MG PO PRN, TAB 03/13/17 [place] Carbonate* ([place]*) 150 Mg Cap, 450 MG PO BID, CAP 03/13/17 Calcium Carbonate/Vitamin D3 (Calcium 500 + D Tablet) 1 Tab Tablet, 1 TAB PO BID, 0 Refills 11/23/09 Allergies Allergies: Coded Allergies: metoclopramide (Verified Allergy, Severe, BPS, 03/13/17) olanzapine (Verified Allergy, Unknown, Dystonic reaction, 03/13/17) PMhx/Soc History of Surgery: Yes (4 ABORTIONS, BREAST AUGMENTATION) Anesthesia Reaction: No Hx Neurological Disorder: No Hx Respiratory Disorders: Yes (EMPHYSEMA) Hx Cardiac Disorders: No Hx Psychiatric Problems: Yes (bipolar) Hx Miscellaneous Medical Probl: Yes (KIDNEY STONE, HEPATITIS C) Hx Alcohol Use: No Hx Substance Use: Yes (hx cocaine use 07/14/2018) Hx Tobacco Use: Yes (quit 06/2018) Smoking Status: Former smoker Physical Exam Vitals Vital Signs Date Temp Pulse Resp B/P (MAP) Pulse Ox O2 O2 Flow FiO2 Time Delivery Rate 07/15/18 97.9 76 22 130/90 97 Room Air 02:33 (103) 07/15/18 97.6 82 18 128/82 100 00:40 (97) Physical Exam Const: No acute distress Head: Atraumatic Eyes: Normal Conjunctiva ENT: Normal External Ears, Nose and Mouth. Neck: Full range of motion. No meningismus. Resp: Clear to auscultation bilaterally Cardio: Regular rate and rhythm, no murmurs Abd: Soft, non tender, non distended. Normal bowel sounds Skin: No petechiae or rashes Back: No midline or flank tenderness Ext: No cyanosis, or edema Neur: Awake and alert Psych: Normal Mood and Affect Results 24 hrs Current Medications Medications Dose Sig/Jignesh Start Time Status Last (Trade) Ordered Route PRN Stop Time Admin Dose Reason Admin Naproxen 500 mg ONCE ONCE 07/15/18 (Naprosyn) PO 05:00 07/15/18 05:01 Procedures/MDM Emergency department course: Patient seen and evaluated. Given Naprosyn for pain. Medical decision making: Patient's musculoskeletal symptoms have stabilized while they have been evaluated in the department and are appropriate for outpatient work up. No evidence of cauda equina, cord compression, infiltrative, or infectious e tiology. Departure Diagnosis: Primary Impression: Back pain Back pain location: back pain in unspecified location Chronicity: acute Back pain laterality: unspecified Qualified Codes: M54.9 - Dorsalgia, unspecified Condition: Stable STEVE SMITH Jul 15, 2018 04:41
[2018-07-15] MEDS ORDERED: NAPROXEN 500 MG TAB PO ONE (05:00)
[2018-07-15 05:27] VITALS: BP 125/82; PULSE 77; RESP 20
== END 2018-07-15 05:29 | disposition home or self-care (01) ==
LOC: FTE 00:33 → E/R 05:29
DX: M54.9 Dorsalgia, unspecified (principal); Z87.891 Personal history of nicotine dependence
CPT/HCPCS: 99282

== ENCOUNTER 2018-07-17 17:01 | Emergency (ER) | payer MEDICARE, OTHER ==
[~2018-07-17] VITALS: Wt 65.0 kg
[~2018-07-17 17:01] MED LIST changes: -CALC-62 PO; -CYCL10TA7 PO; -DIAZ10TA4 PO; -LTH150C PO; -MULT-96 PO; -OMEP20CA16 PO; -SULF1TAB31 PO
[2018-07-17 17:24] VITALS: BP 187/78; PULSE 98; RESP 20
[2018-07-17] MEDS ORDERED: LORAZEPAM 1 MG TAB PO ONE (18:00)
[2018-07-17] MEDS ORDERED: IBUPROFEN 600 MG TAB PO ONE (18:00)
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
== END 2018-07-17 18:40 | disposition home or self-care (01) ==
LOC: E/R 17:01
DX: F15.10 Other stimulant abuse, uncomplicated (principal); F31.12 Bipolar disorder, current episode manic without psychotic features, moderate; I10 Essential (primary) hypertension; F17.210 Nicotine dependence, cigarettes, uncomplicated
CPT/HCPCS: 99283

== ENCOUNTER 2018-09-22 10:14 | Emergency (ER) | payer MEDICARE, OTHER ==
[~2018-09-22] VITALS: Ht 167.6 cm; Wt 65.0 kg
[2018-09-22 10:21] VITALS: BP 117/63; PULSE 68; RESP 18; Ht 167.6 cm; Wt 65.0 kg
[2018-09-22] MEDS ORDERED: SULF1TAB31 PO (13:21)
--- NOTE | 2018-09-22 18:59 | ERD ---
ER Documentation Chief Complaint Chief Complaint used cocaine yesterday today stating needs MRSA medication HPI History of Present Illness: 58-year-old female with history of emphysema, hep atitis C, GERD," valve problem" coming in today with complaint of medication refill. Patient reports that she was exposed to MRSA and had a diagnosis of MRSA in which she is prescribed Bactrim for 10 days in July. Patient lost her prescription and did not complete the antibiotic course. Patient reports using cocaine 2-3 days ago. Denies At home pharmacological/nonpharmacological treatment for symptoms: Denies Denies social concerns; Denies recent foreign travel ROS All systems reviewed and are negative except as per history of present illness. Medications Home Meds Active Scripts Sulfamethoxazole/Trimethoprim* (Bactrim Ds* Tablet) 1 Each Tablet, 1 TAB PO BID for MRSA for 7 Days, #14 TAB Prov:SAMUEL PARISH V PROFESSOR OF PRACTICE 09/22/18 Reported Medications Hydroxyzine Hcl* (Atarax*) 50 Mg Tab, 50 MG PO QHS PRN for ITCHING, TAB 03/13/17 Allergies Allergies: Coded Allergies: metoclopramide (Verified Allergy, Severe, BPS, 03/13/17) olanzapine (Verified Allergy, Unknown, Dystonic reaction, 03/13/17) PMhx/Soc History of Surgery: Yes (4 ABORTIONS, BREAST AUGMENTATION) Anesthesia Reaction: No Hx Neurological Disorder: No Hx Respiratory Disorders: Yes (EMPHYSEMA) Hx Cardiac Disorders: No Hx Psychiatric Problems: Yes (bipolar) Hx Miscellaneous Medical Probl: Yes (KIDNEY STONE, HEPATITIS C) Hx Alcohol Use: No Hx Substance Use: Yes (hx cocaine use 2018) Hx Tobacco Use: Yes (quit 06/2018) Smoking Status: Former smoker FmHx Family History: diabetes, coronary disease Physical Exam Vitals Vital Signs Date Temp Pulse Resp B/P (MAP) Pulse Ox O2 O2 Flow FiO2 Time Delivery Rate 09/22/18 97.8 68 18 117/63 99 10:21 (81) Physical Exam Const: No acute distress, patient is jumpy anxious Head: Atraumatic Eyes: Normal Conjunctiva ENT: Normal External Ears, Nose and Mouth. Neck: Full range of motion. No meningismus. Resp: Clear to auscultation bilaterally Cardio: Regular rate and rhythm, no murmurs Abd: Soft, non tender, non distended. Normal bowel sounds Skin: No petechiae or rashes, small skin lesion consistent with possible staph infection Back: No midline or flank tenderness Ext: No cyanosis, or edema Neur: Awake and alert Psych: Normal Mood and Affect Procedures/MDM ED course includes a thorough examination and history. Medications: Imaging: Labs: MRSA screen; patient verbalizes understanding that she will contacted regarding results if positive Low suspicion for life-threatening medical emergency patient presenting with constellation of symptoms likely representing medication refill/MRSA exposure/history of MRSA as characterized by history, physical exam findings. No respiratory distress, otherwise relatively well appearing and nontoxic. Patient educated on diagnoses, prescriptions, follow-up care, return precautions. Strict return precautions given for worsening condition; questions answered discharge. Disposition for discharge with followup in 2 days with PCP/clinic. Departure Diagnosis: Primary Impression: MRSA exposure Additional Impression: History of MRSA infection Condition: Stable Patient Instructions: MRSA Culture Referrals: COMMUNITY CLINICS YOU HAVE RECEIVED A MEDICAL SCREENING EXAM AND THE RESULTS INDICATE THAT YOU DO NOT HAVE A CONDITION THAT REQUIRES URGENT TREATMENT IN THE EMERGENCY DEPARTMENT. FURTHER EVALUATION AND TREATMENT OF YOUR CONDITION CAN WAIT UNTIL YOU ARE SEEN IN YOUR DOCTORS OFFICE WITHIN THE NEXT 1-2 DAYS. IT IS YOUR RESPONSIBILITY TO MAKE AN APPOINTMENT FOR FOLOW-UP CARE. IF YOU HAVE A PRIMARY DOCTOR --you should call your primary doctor and schedule an appointment IF YOU DO NOT HAVE A PRIMARY DOCTOR YOU CAN CALL OUR PHYSICIAN REFERRAL HOTLINE AT IF YOU CAN NOT AFFORD TO SEE A PHYSICIAN YOU CAN CHOSE FROM THE FOLLOWING [facility] CLINICS [facility] [address] [facility]. [facility] [address] [facility]. [facility] [address] [facility]. [facility] [address] [facility]. [facility] [address] [facility]. [facility]. [address] [facility]. [facility] YOU HAVE RECEIVED A MEDICAL SCREENING EXAM AND THE RESULTS INDICATE THAT YOU DO NOT HAVE A CONDITION THAT REQUIRES URGENT TREATMENT IN THE EMERGENCY DEPARTMENT. FURTHER EVALUATION AND TREATMENT OF YOUR CONDITION CAN WAIT UNTIL YOU ARE SEEN IN YOUR DOCTORS OFFICE WITHIN THE NEXT 1-2 DAYS. IT IS YOUR RESPONSIBILITY TO MAKE AN APPOINTMENT FOR FOLOW-UP CARE. IF YOU HAVE A PRIMARY DOCTOR --you should call your primary doctor and schedule and appointment IF YOU DO NOT HAVE A PRIMARY DOCTOR YOU CAN CALL OUR PHYSICIAN REFERRAL HOTLINE AT . IF YOU CAN NOT AFFORD TO SEE A PHYSICIAN YOU CAN CHOSE FROM THE FOLLOWING [facility] INSTITUTIONS: [facility] [address] [place] [address] [facility] [address] [place] [address] [facility] [address] [place] [address] Additional Instructions: Thank you very much for allowing us to participate in your care. Your health and safety is our top priority at [facility]. It is important to read all discharge instructions and education provided in your discharge packet. *We will have the MRSA results in 2 to 3 days. If you are positive, we will let you know. If you are negative, we will let you know to stop taking the antibiotics.* Call your primary care doctor TOMORROW for an appointment during the next 2-4 days and bring all the information and medications prescribed. Have prescriptions filled and follow precisely the directions on the label. If the symptoms get worse and your provider is unavailable, return to the Emergency Department immediately. SAMUEL PARISH NP September 22, 2018 18:59
== END 2018-09-22 14:55 | disposition home or self-care (01) ==
LOC: FTE 10:14
DX: A49.02 Methicillin resistant Staphylococcus aureus infection, unspecified site (principal); Z87.891 Personal history of nicotine dependence
CPT/HCPCS: 87081; 99283

== ENCOUNTER 2018-11-19 01:16 | Emergency (ER) | payer MEDICARE, OTHER ==
[~2018-11-19] VITALS: Ht 167.6 cm; Wt 63.5 kg
[~2018-11-19 01:16] MED LIST changes: +SULF1TAB31 PO
[2018-11-19 01:21] VITALS: BP 127/61; PULSE 74; RESP 16; Ht 167.6 cm; Wt 63.5 kg
--- NOTE | 2018-11-19 01:55 | ERD ---
ER Documentation Chief Complaint Chief Complaint Pt reports she missed taking a bactrim and wants MRSA checked HPI This is a 58-year-old female who presented emergency department stating that she lost her last pills of Bactrim 2 days ago and requesting for a prescription for this. LMP: Denies. Denies headache, head injury, loss of consciousness, dizziness, neck pain, neck stiffness, throat pain, difficulty swallowing, difficulty breathing lying flat, shoulder pain, chest pain, back pain, abdominal pain, nausea, vomiting, constipation, diarrhea, urinary symptoms, or possibility being , loss of bowel and bladder control, trauma, injury, falls, difficulty walking due to pain, numbness or tingling sensation, calf pain, recent travel, recent major surgery in the last 3 weeks, calf pain, recent long travel, recent exposure to any illness, recent antibiotic use in the last 3 months, fever, chills, seizures. Past medical history: Hepatitis C. Social: Denies smoking, use of alcoholic beverages, use of illegal drugs. ROS All systems reviewed and are negative except as per history of present illness. Medications Home Meds Active Scripts Sulfamethoxazole/Trimethoprim* (Bactrim Ds* Tablet) 1 Each Tablet, 1 TAB PO BID for 3 Days, #6 TAB Prov:ERNIE ROMAN 11/19/18 Sulfamethoxazole/Trimethoprim* (Bactrim Ds* Tablet) 1 Each Tablet, 1 TAB PO BID for MRSA for 7 Days, #14 TAB Prov:SAMUEL PARISH V PERSONNEL MANAGER 09/22/18 Reported Medications Hydroxyzine Hcl* (Atarax*) 50 Mg Tab, 50 MG PO QHS PRN for ITCHING, TAB 03/13/17 Allergies Allergies: Coded Allergies: metoclopramide (Verified Allergy, Severe, BPS, 03/13/17) olanzapine (Verified Allergy, Unknown, Dystonic reaction, 03/13/17) PMhx/Soc History of Surgery: Yes (4 ABORTIONS, BREAST AUGMENTATION) Anesthesia Reaction: No Hx Neurological Disorder: No Hx Respiratory Disorders: Yes (EMPHYSEMA) Hx Cardiac Disorders: No Hx Psychiatric Problems: Yes (bipolar) Hx Miscellaneous Medical Probl: Yes (KIDNEY STONE, HEPATITIS C) Hx Alcohol Use: No Hx Substance Use: Yes (hx cocaine use 2018) Hx Tobacco Use: Yes (quit 06/2018) Physical Exam Vitals Vital Signs Date Temp Pulse Resp B/P (MAP) Pulse Ox O2 O2 Flow FiO2 Time Delivery Rate 11/19/18 97.5 74 16 127/61 98 01:21 (83) Physical Exam Head: Atraumatic Eyes: Normal Conjunctiva ENT: Normal External Ears, Nose and Mouth. Bilateral ears: TMs are not erythematous. No bleeding. No discharge. No hearing loss. No mastoid tenderness. Nose: There is no frontal or maxillary sinus tenderness palpation. Throat: Uvula is in midline and nondisplaced. Tonsils are +1 bilaterally without redness and without exudates. Tolerating secretions. Patent airway. Speaks full and clear sentences. No tripoding. Neck: Full range of motion. No meningismus. No nuchal rigidity. No signs of meningeal irritation. Resp: Clear to auscultation bilaterally. No accessory muscle use in breathing. Cardio: Regular rate and rhythm, no murmurs Abd: Soft, non tender, non distended. Normal bowel sounds. Negative Hauser sign. Skin: No petechiae or rashes. Color appears normal for ethnicity. No skin tenting. No signs of severe dehydration. Back: No midline or flank tenderness Ext: No cyanosis, or edema. Unremarkable bilateral upper and lower extremities. No neurovascular deficit. Ambulatory with steady gait. Neur: Awake and alert. No neurological deficits. Psych: Normal Mood and Affect Procedures/MDM Diagnostic tests: Offered diagnostic test but patient strongly refused. Stated that she does need a prescription for her Bactrim so she could finish the course. Treatment: Not applicable. Re-evaluation: Not applicable. Differential diagnosis I have low suspicion for sepsis, deep space infection. Final diagnosis: Medication refill. Prescription: Bactrim. Follow-up with PCP in the next 24-48 hours. Come back here in the emergency department for any new symptoms or any worsening symptoms. All questions and concerns were answered. Patient and family members verbalized understanding and agreed with plan of care. Hemodynamically stable on discharge. Departure Diagnosis: Primary Impression: Encounter for wound re-check Additional Impression: Medication refill Condition: Stable Additional Instructions: Follow-up with PCP in the next 24-48 hours. Come back here in the emergency department for any new symptoms or any worsening symptoms. ERNIE ROMAN Nov 19, 2018 01:55
[2018-11-19] MEDS ORDERED: SULF1TAB31 PO (02:11)
== END 2018-11-19 02:45 | disposition home or self-care (01) ==
LOC: FTE 01:16
DX: Z76.0 Encounter for issue of repeat prescription (principal); Z87.891 Personal history of nicotine dependence; Z48.00 Encounter for change or removal of nonsurgical wound dressing
CPT/HCPCS: 99281

== ENCOUNTER 2018-12-26 21:54 | Emergency (ER) | payer MEDICARE, OTHER ==
[~2018-12-26] VITALS: Ht 167.6 cm; Wt 66.1 kg
[~2018-12-26 21:54] MED LIST changes: +EPIN0.3P4 INJ; +HYDR-3980 PO; +IBUP-1542 PO; +PRED20TA PO
[2018-12-26] MEDS ORDERED: predniSONE 20 MG TAB PO STA (21:59)
[2018-12-26] MEDS ORDERED: EPINEPHrine 1 MG INJ IM STA (21:59)
[2018-12-26 22:00] VITALS: Ht 167.6 cm; Wt 66.1 kg
[2018-12-26 23:05] VITALS: BP 102/61; PULSE 95; RESP 12
--- NOTE | 2018-12-26 23:30 | ERD ---
ER Documentation Chief Complaint Chief Complaint BIB RA C/O ALLERGIC RX S/P BEE STING TO LEFT BREAST HPI Patient is a 58-year-old female with bipolar disorder who presents with shortness of breath. The patient was brought in by ambulance. The patient said that she was stung by a bee on her breast just prior to arrival. She has had no treatment as of yet. She says "I need an EpiPen". Upon review of old medical record the patient has multiple visits to the ER for various complaints. Review of the emergency department information exchange system shows visits to 4 separate emergency departments for a total of 16 visits over the past 1 year. She does not currently have a primary doctor. ROS All systems reviewed and are negative except as per history of present illness. Medications Home Meds Active Scripts Prednisone* (Prednisone*) 20 Mg Tab, 60 MG PO DAILY for 4 Days, TAB Prov:LITA MCDANIEL MD 12/26/18 Epinephrine (Epipen 2-Dawson) 0.3 Mg/0.3 Ml Pen.injctr, 1 EA INJ ONCE PRN for ALLERGIC REACTION, #1 EA Prov:LITA MCDANIEL MD 12/26/18 Sulfamethoxazole/Trimethoprim* (Bactrim Ds* Tablet) 1 Each Tablet, 1 TAB PO BID for 3 Days, #6 TAB Prov:ERNIE ROMAN 11/19/18 Sulfamethoxazole/Trimethoprim* (Bactrim Ds* Tablet) 1 Each Tablet, 1 TAB PO BID for MRSA for 7 Days, #14 TAB Prov:SAMUEL PARISH NP 09/22/18 Reported Medications Hydroxyzine Hcl* (Atarax*) 50 Mg Tab, 50 MG PO QHS PRN for ITCHING, TAB 03/13/17 Allergies Allergies: Coded Allergies: metoclopramide (Verified Allergy, Severe, BPS, 03/13/17) olanzapine (Verified Allergy, Unknown, Dystonic reaction, 03/13/17) PMhx/Soc History of Surgery: Yes (4 ABORTIONS, BREAST AUGMENTATION) Anesthesia Reaction: No Hx Neurological Disorder: No Hx Respiratory Disorders: Yes (EMPHYSEMA) Hx Cardiac Disorders: No Hx Psychiatric Problems: Yes (bipolar) Hx Miscellaneous Medical Probl: Yes (KIDNEY STONE, HEPATITIS C) Hx Alcohol Use: No Hx Substance Use: Yes (hx cocaine use 2018) Hx Tobacco Use: Yes (quit 06/2018) Smoking Status: Former smoker FmHx Family History: No diabetes Physical Exam Vitals Vital Signs Date Temp Pulse Resp B/P (MAP) Pulse Ox O2 O2 Flow FiO2 Time Delivery Rate 12/26/18 95 12 102/61 97 Room Air 23:05 (75) 12/26/18 97.6 98 12 110/72 98 22:00 (85) Physical Exam Const: Moderate distress Head: Atraumatic Eyes: Normal Conjunctiva ENT: Normal External Ears, Nose and Mouth. No obvious oropharyngeal or tongue swelling Neck: Full range of motion. No meningismus. Resp: Tachypnea and upper airway sounds Cardio: Regular rate and rhythm, no murmurs Abd: Soft, non tender, non distended. Normal bowel sounds Skin: No petechiae or rashes Back: No midline or flank tenderness Ext: No cyanosis, or edema Neur: Awake and alert Results 24 hrs Current Medications Medications Dose Sig/Jignesh Start Time Status Last (Trade) Ordered Route PRN Stop Time Admin Dose Reason Admin Epinephrine 0.3 mg ONCE STAT 12/26/18 DC 12/26/18 IM 21:59 12/26/18 22:07 (EPINEPHrine) 22:00 Prednisone 60 mg ONCE STAT 12/26/18 DC 12/26/18 (Prednisone) PO 21:59 12/26/18 22:07 22:00 Procedures/MDM Patient is a 58-year-old female presents with acute bee sting and anaphylaxis. The patient was given epinephrine and prednisone. She feels much better now and her breathing has improved. I do not believe she requires further work-up or admission of the hospital at this time. The patient will be discharged home with 4 more days of prednisone and a prescription for an EpiPen to have with her in the future in case she gets stung by bee. The patient can follow-up with the local clinics within the next 1 to 2 days she does not currently have a primary doctor. She can return to the ER sooner for any worsening symptoms or trouble breathing. Critical Care: Time: 35 minutes excluding all billable procedures. Treatments/Evaluations: Close monitoring and treatment of unstable vital signs, cardiorespiratory, and neurologic status, while maintaining tight balance of fluid, respiratory, and cardiac interventions. Departure Diagnosis: Primary Impression: Bee sting Encounter type: initial encounter Injury intent: undetermined intent Qualified Codes: T63.444A - Toxic effect of venom of bees, undetermined, initial encounter Additional Impression: Acute anaphylaxis Encounter type: initial encounter Qualified Codes: T78.2XXA - Anaphylactic shock, unspecified, initial encounter Condition: Fair Patient Instructions: Insect Bites and Stings, Anaphylaxis, General Referrals: [facility] YOU HAVE RECEIVED A MEDICAL SCREENING EXAM AND THE RESULTS INDICATE THAT YOU DO NOT HAVE A CONDITION THAT REQUIRES URGENT TREATMENT IN THE EMERGENCY DEPARTMENT. FURTHER EVALUATION AND TREATMENT OF YOUR CONDITION CAN WAIT UNTIL YOU ARE SEEN IN YOUR DOCTORS OFFICE WITHIN THE NEXT 1-2 DAYS. IT IS YOUR RESPONSIBILITY TO MAKE AN APPOINTMENT FOR FOLOW-UP CARE. IF YOU HAVE A PRIMARY DOCTOR --you should call your primary doctor and schedule an appointment IF YOU DO NOT HAVE A PRIMARY DOCTOR YOU CAN CALL OUR PHYSICIAN REFERRAL HOTLINE AT IF YOU CAN NOT AFFORD TO SEE A PHYSICIAN YOU CAN CHOSE FROM THE FOLLOWING [facility] [address] [facility]. [facility] [address] [facility]. [facility] [address] [facility] [address] [facility]. [facility] [address] [facility]. [facility] [address] Additional Instructions: Call your primary care doctor TOMORROW for an appointment during the next 1-2 days.See the doctor sooner or return here if your condition worsens before your appointment time. LITA MCDANIEL MD Dec 26, 2018 23:30
== END 2018-12-26 23:10 | disposition home or self-care (01) ==
LOC: E/R 21:54
DX: T63.444A Toxic effect of venom of bees, undetermined, initial encounter (principal); T78.2XXA Anaphylactic shock, unspecified, initial encounter; Z87.891 Personal history of nicotine dependence
CPT/HCPCS: 96372; 99291; J0171; J7512

== ENCOUNTER 2019-01-06 22:11 | Emergency (ER) | payer MEDICARE, OTHER ==
[~2019-01-06] VITALS: Ht 167.6 cm; Wt 59.0 kg
[~2019-01-06 22:11] MED LIST changes: +CEPH-443 PO; +NAPR-985 PO
[2019-01-06 22:14] VITALS: BP 148/85; PULSE 73; RESP 19; Ht 167.6 cm; Wt 59.0 kg
[2019-01-07] MEDS ORDERED: IBUPROFEN 600 MG TAB PO ONE (01:30)
== END 2019-01-07 05:49 | disposition home or self-care (01) ==
LOC: FTE 22:11
DX: S82.452A Displaced comminuted fracture of shaft of left fibula, initial encounter for closed fracture (principal); W18.39XA Other fall on same level, initial encounter; Y92.9 Unspecified place or not applicable; Z87.891 Personal history of nicotine dependence
CPT/HCPCS: 73610; 93971

== ENCOUNTER 2019-01-09 21:41 | Emergency (ER) | payer MEDICARE, OTHER ==
[~2019-01-09] VITALS: Ht 167.6 cm; Wt 65.0 kg
[2019-01-09 21:45] VITALS: BP 109/64; PULSE 78; RESP 16; Ht 167.6 cm; Wt 65.0 kg
[2019-01-09] MEDS ORDERED: CEFTRIAXONE 1 GM INJ IM ONE (22:30)
== END 2019-01-09 23:20 | disposition home or self-care (01) ==
LOC: FTE 21:41
DX: S99.912D Unspecified injury of left ankle, subsequent encounter (principal); F17.210 Nicotine dependence, cigarettes, uncomplicated; W19.XXXD Unspecified fall, subsequent encounter; Z86.14 Personal history of Methicillin resistant Staphylococcus aureus infection
CPT/HCPCS: 29515; 96372; 99284; J0696